=== PATIENT | male | born 1990 | race African-American/Black ===

== ENCOUNTER → 2022-03-17 | Outpatient (CLI) | LOC: M SOG 13:17 | PROVIDERS: ATTEND Orthopaedic Surgery | DX: M25.539 Pain in unspecified wrist (principal) ==

== ENCOUNTER 2022-06-25 06:14 | Day surgery (SDC) | payer OTHER ==
[~2022-06-25] VITALS: Ht 175.3 cm; Wt 88.0 kg
[~2022-06-25 06:14] MED LIST: FLAX1CAP5 PO; VITMTA PO; [UNRECOGNIZED DRUG - CODE] PO; ceFAZolin SOD 2 GM in IV 1 EA IV ONE
[2022-06-25] MEDS ORDERED: IBUP80TA PO (07:05)
[2022-06-25] MEDS ORDERED: ceFAZolin SOD 2 GM in IV 1 EA IV SCH (07:05)
[2022-06-25] MEDS ORDERED: GABA-1171 PO (07:05)
[2022-06-25] MEDS ORDERED: ROPIvacaine 0.5% 30ML INJECTION (J2795 PER 1MG) PN ONE (07:15)
[2022-06-25] MEDS ORDERED: dexameTHASONE 10MG/1ML VIAL PRES.FREE (J1100 PER 1MG) PN ONE (07:15)
[2022-06-25] MEDS ORDERED: LIDOCAINE 1% SDV 5ML VIAL PN ONE (07:15)
[2022-06-25] MEDS ORDERED: ceFAZolin SOD 2 GM in IV 1 EA IV ONE (07:16)
[2022-06-25] MEDS ORDERED: LR 1,000 ML IV SCH ×2 (07:20→10:15)
[2022-06-25] MEDS: fentaNYL 100 MCG/2 ML INJECTION IV PRN ×2 (07:21→07:23)
[2022-06-25] MEDS: MIDAZOLAM INJ 2MG/2ML VIAL (J2250 PER 1MG) IV PRN ×2 (07:21→07:23)
[2022-06-25] MEDS ORDERED: BUPIVACAINE HCL 0.25% 30ML VIAL As Ordered ONE (07:34)
[2022-06-25] MEDS ORDERED: BACITRACIN OINTMENT 30GM TUBE As Ordered ONE (07:34)
[2022-06-25] MEDS ORDERED: propofoL 200 MG/20 ML VIAL As Ordered ONE (08:02)
[2022-06-25] MEDS ORDERED: dexameTHASONE 4 MG/ML 1ML VIAL (J1100 PER 1MG) As Ordered ONE (08:02)
[2022-06-25] MEDS ORDERED: LIDOCAINE 2% 100MG/5ML SDV (FOR ANES.) As Ordered ONE (08:02)
[2022-06-25] MEDS ORDERED: ACETAMINOPHEN 1000MG 100ML IV BTL (OFIRMEV) (J0131 PER 10MG) As Ordered ONE (08:02)
[2022-06-25] MEDS ORDERED: ONDANSETRON 4MG 2ML VIAL As Ordered ONE (08:02)
[2022-06-25] MEDS ORDERED: fentaNYL 100 MCG/2 ML INJECTION As Ordered ONE (08:02)
[2022-06-25] MEDS ORDERED: PHENYLephrine 500MCG 5ML (100MCG/ML) SYRINGE As Ordered ONE (08:49)
[2022-06-25] MEDS ORDERED: ePHEDrine SULFATE 25 MG/5 ML(5MG/ML) SYRINGE As Ordered ONE (08:49)
[2022-06-25] MEDS ORDERED: KETOROLAC 60MG 2ML VIAL As Ordered ONE (09:42)
[2022-06-25] MEDS ORDERED: PERC5TAB12 PO ×2 (10:09→11:11)
[2022-06-25] MEDS ORDERED: HYDROMORPHONE HCL 0.5 MG/ 0.5 ML SYRINGE (J1170 PER 1) IV PRN (10:15)
[2022-06-25] MEDS ORDERED: ONDANSETRON 4MG 2ML VIAL IV PRN (10:15)
[2022-06-25] MEDS ORDERED: fentaNYL 100 MCG/2 ML INJECTION IV PRN (10:15)
[2022-06-25] MEDS ORDERED: oxyCODONE 5MG TAB PO PRN (10:15)
[2022-06-25 10:50] VITALS: BP 136/89
== END 2022-06-25 11:21 | disposition home or self-care (01) ==
LOC: M SDC 06:14
PROVIDERS: ATTEND Orthopaedic Surgery Hand Surgery
DX: S63.392A Traumatic rupture of other ligament of left wrist, initial encounter (principal); X58.XXXA Exposure to other specified factors, initial encounter; Z88.0 Allergy status to penicillin; Z91.013 Allergy to seafood
CPT/HCPCS: 25320; 76000; C1713; J0131; J1100; J1885; J2250; J2370; J2405; J3010

== ENCOUNTER → 2022-07-05 | Outpatient (CLI) | payer OTHER ==
[~2022-07-05] MED LIST changes: +GABA-1171 PO; +IBUP80TA PO; +PERC5TAB12 PO; -ceFAZolin SOD 2 GM in IV 1 EA IV ONE
== END ==
LOC: M SOG 13:39
PROVIDERS: ATTEND Physician Assistant
DX: S63.392A Traumatic rupture of other ligament of left wrist, initial encounter (principal); X58.XXXA Exposure to other specified factors, initial encounter; Y92.9 Unspecified place or not applicable; Y93.9 Activity, unspecified; Y99.9 Unspecified external cause status

== ENCOUNTER → 2022-07-20 | Outpatient (CLI) | payer OTHER | LOC: M SOG 08:17 | PROVIDERS: ATTEND Orthopaedic Surgery Hand Surgery | DX: Z47.89 Encounter for other orthopedic aftercare (principal) ==

== ENCOUNTER → 2022-08-19 | Outpatient (CLI) | payer OTHER | LOC: M SOG 08:14 | PROVIDERS: ATTEND Orthopaedic Surgery Hand Surgery | DX: Z47.89 Encounter for other orthopedic aftercare (principal); Z98.890 Other specified postprocedural states ==

== ENCOUNTER → 2022-09-20 | Outpatient (CLI) | payer OTHER | LOC: M SOG 07:58 | PROVIDERS: ATTEND Orthopaedic Surgery Hand Surgery | DX: M19.032 Primary osteoarthritis, left wrist (principal) ==